=== PATIENT | male | born 1940 | race Caucasian/White ===

== ENCOUNTER 2021-11-23 12:51 | Observation (INO) ==
--- NOTE | 2021-11-23 12:58 | Emergency Department Note ---
HPI General Chief complaint: Rectal Bleed Stated complaint: Bloody Stool post procedure Time Seen by Provider: 11/23/21 12:56 Source: patient Mode of arrival: wheelchair Limitations: no limitations History of Present Illness HPI Narrative: 81-year-old male with past medical history of prostate cancer presenting with rectal bleeding. Patient saw Dr. Tiwari of urology this morning who performed transrectal biopsy of the prostate. Patient had a small amount of bleeding after the procedure that resolved and he was discharged. Approximately 1-1/2 hours after being discharged patient noted a large amount of red blood in his underwear. He has continued to have bright red blood per rectum for the past 2 hours. Denies any abdominal pain. Not on anticoagulation. Denies any prior history of GI bleeding. No dizziness, lightheadedness, or syncope. Related Data Home Medications Medication Instructions Recorded Confirmed omega-3 fatty acids 1,000 mg 1,000 mg PO QDAY 08/08/19 11/23/21 capsule (Fish Oil Concentrate) acetaminophen 325 mg tablet 500 mg PO Q6H PRN Pain 04/16/20 11/23/21 ascorbic acid (vitamin C) 500 mg 1 g PO QDAY 08/18/21 11/23/21 tablet cranberry 400 mg capsule 800 mg PO QDAY 08/18/21 11/23/21 Stool Softener 2 cap PO QDAY 11/23/21 11/23/21 Vitafusion 1 cap PO QDAY 11/23/21 11/23/21 cholecalciferol (vitamin D3) 25 25 mcg PO QDAY 11/23/21 11/23/21 mcg (1,000 unit) capsule levofloxacin 500 mg tablet 500 mg PO QDAY 11/23/21 11/23/21 Allergies Allergy/AdvReac Type Severity Reaction Status Date / Time No Known Drug Allergies Allergy Verified 11/23/21 12:57 Review of Systems ROS ROS Narrative: Narrative: Constitutional: Denies fever ENT ED: Denies throat pain Cardiovascular: Denies chest pain Respiratory: Denies shortness of breath or cough Gastrointestinal: Reports hematochezia; Denies abdominal pain, nausea or vomiting Genitourinary: Denies dysuria Musculoskeletal: Denies back pain Integumentary: Denies rash Neurological: Denies headache Psychiatric: Denies anxiety Endocrine: Denies fatigue Hematological/Lymphatic: Denies easy bruising PFSH Narrative Patient History Narrative: Narrative: Medical/Surgical/Family History All Active Problems (Updated 11/23/21 @ 17:25 by Billy Washington MD) Prostate cancer (Chronic) 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 Dyslipidemia Esophageal cancer GERD (gastroesophageal reflux disease) Herpes zoster Hiatal hernia Hyperlipidemia Hypertension Murmur Prostate cancer 2017 [place] grade 3+3 adenocarcinoma, 10 to 15% of the gland was involved, no treatment desired currently. Active surveillance Pruritic rash Pulmonary embolism Surgical History History of colonoscopy (~2010) History of esophageal surgery Part of the esophagus has been removed. History of hand surgery (~2016) RT thumb and tendon repair. History of hernia repair (~06/2012) History of Fitz fundoplication History of prostate biopsy (~2017) History of splenectomy History of surgery Medical records state: Gallbladder surgery for benign tumor in 2009. History of surgery on arm Family History Mother , Age 82 Heart disease Father , Age 42 Esophageal cancer Family/Other Uterine cancer Other Diabetes HTN (hypertension) Heart attack Prostate CA Social History Smoking Status: Former smoker Alcohol Intake Frequency: 0-2 drinks per day Substance Use: does not use Exam Narrative Narrative: Narrative: General Limitations: no limitations General appearance: Present alert and in no apparent distress Head Head: Present atraumatic and normocephalic Eye Eye: Present normal appearance and EOMI; Absent scleral icterus or conjunctival injection ENT ENT: Present mucous membranes moist Neck Neck: Present trachea midline Chest Chest: Present symmetric chest wall rise Respiratory Respiratory: Present normal lung sounds bilaterally; Absent respiratory distress, rales/crackles, wheezes, stridor or accessory muscle use Cardiovascular Cardiovascular: Present regular rate and normal rhythm; Absent systolic murmur or diastolic murmur Adbominal Abdominal: Present soft; Absent distention, tenderness, guarding, rebound or rigidity Rectal Rectal: Present other (Red blood actively draining from the rectum. No external fissures or lesions noted.); Absent tenderness Extremities Extremities: Present normal inspection; Absent pretibial edema Neurological Neurological: Present alert and oriented X3 Psychiatric Psychiatric: Present normal affect and normal mood Skin Skin: Present warm (WNL) and dry Course Consultations Consultation #1: Dr. Tiwari, urology Time: 15:00 Consultation #2: Margaret Miner, gastroenterology Time: 16:20 Consultation #3: Dr. Hernandez, hospitalist Time: 16:40 Vital Signs Vital signs: Vital Signs Temperature 97.4 F 11/23/21 12:53 Pulse Rate 93 H 11/23/21 12:53 Respiratory Rate 18 11/23/21 12:53 Blood Pressure 130/80 11/23/21 12:53 Pulse Oximetry (%) 98 11/23/21 12:53 Oxygen Delivery Method 11/23/21 12:53 Temperature 97.4 F 11/23/21 12:53 Pulse Rate 93 H 11/23/21 17:02 Respiratory Rate 18 11/23/21 12:53 Blood Pressure 93/67 11/23/21 14:16 Pulse Oximetry (%) 100 11/23/21 17:02 Oxygen Delivery Method 11/23/21 12:53 [facility] MDM Narrative Medical decision making narrative: 81-year-old male presenting with rectal bleeding after transrectal prostate biopsy this morning. He does have active red blood on rectal exam without prostate tenderness. Vital signs are stable. Not on anticoagulation. Will obtain labs and discuss with Dr. Tiwari. Hemoglobin is 11.9, we do not have any prior comparison here. INR is 1.0. I spoke with Dr. Tiwari who recommends direct pressure with gauze, which I attempted with TXA soaked gauze, however he continued to have lower GI bleeding with clots. Blood pressure and heart rate remain stable. Will discuss with GI and patient will likely need admission. 1710: I spoke with Margaret Miner of GI who is willing to consult on the patient for his lower GI bleeding. I also spoke again with Dr. Tiwari. I held pressure again digital rectally for 10 minutes over the prostate area. Patient did seem to have some improvement in bleeding after holding pressure. Patient was discussed with Dr. Hernandez, hospitalist, who is agreeable and accepting the patient for observation admission. Lab Data Lab results reviewed: Yes I reviewed the patient's lab results. Result diagrams: 11/23/21 13:30 Labs: Lab Results 11/23/21 11/23/21 11/23/21 Range/Units 13:28 13:30 13:30 WBC 12.0 H (4.5-11.0) K/mcL RBC 3.80 L (4.63-6.08) M/mcL Hgb 11.9 L (13.7-17.5) g/dL Hct 35.5 L (40.1-51.0) % POC Hct (41-55) MCV 93.4 (80.0-100.0) fL MCH 31.3 (26.0-34.0) pg MCHC 33.5 (31.0-36.0) g/dL RDW 14.6 H (11.5-14.5) % Plt Count 270 (140-440) K/mcL MPV 9.8 (7.4-10.4) fL Immature Gran % (Auto) 0.5 (0.0-0.5) % Neut % (Auto) 71.9 (38.0-78.0) % Lymph % (Auto) 16.0 (15.5-49.0) % [place] % (Auto) 7.4 (1.0-12.0) % Eos % (Auto) 3.8 (0.0-7.0) % Baso % (Auto) 0.4 (0.0-2.0) % Lymph # (Auto) 1.92 (1.50-4.80) K/mcL [place] # (Auto) 0.89 (0.10-0.90) K/mcL Eos # (Auto) 0.45 (0.00-0.70) K/mcL Baso # (Auto) 0.05 (0.00-0.30) K/mcL Immature Gran # 0.06 H (0.00-0.05) K/mcl Absolute Neutrophils 8.68 H (1.80-8.00) K/mcL POC PT 12.1 (11.9-14.5) POC INR 1.0 (0.8-1.2) APTT 27.5 (20.0-37.0) sec POC Sodium (133-145) POC Potassium (3.3-5.1) POC Chloride (96-108) POC Total CO2 (22-30) POC BUN (6-20) POC Creatinine (0.6-1.2) POC Glucose (70-105) POC WB Ioniz Calcium (1.16-1.32) 11/23/21 Range/Units 13:31 WBC (4.5-11.0) K/mcL RBC (4.63-6.08) M/mcL Hgb (13.7-17.5) g/dL Hct (40.1-51.0) % POC Hct 37.0 L (41-55) MCV (80.0-100.0) fL MCH (26.0-34.0) pg MCHC (31.0-36.0) g/dL RDW (11.5-14.5) % Plt Count (140-440) K/mcL MPV (7.4-10.4) fL Immature Gran % (Auto) (0.0-0.5) % Neut % (Auto) (38.0-78.0) % Lymph % (Auto) (15.5-49.0) % [place] % (Auto) (1.0-12.0) % Eos % (Auto) (0.0-7.0) % Baso % (Auto) (0.0-2.0) % Lymph # (Auto) (1.50-4.80) K/mcL [place] # (Auto) (0.10-0.90) K/mcL Eos # (Auto) (0.00-0.70) K/mcL Baso # (Auto) (0.00-0.30) K/mcL Immature Gran # (0.00-0.05) K/mcl Absolute Neutrophils (1.80-8.00) K/mcL POC PT (11.9-14.5) POC INR (0.8-1.2) APTT (20.0-37.0) sec POC Sodium 139 (133-145) POC Potassium 3.8 (3.3-5.1) POC Chloride 100 (96-108) POC Total CO2 27.0 (22-30) POC BUN 14 (6-20) POC Creatinine 1.0 (0.6-1.2) POC Glucose 132 H (70-105) POC WB Ioniz Calcium 1.26 (1.16-1.32) Discharge Plan Patient/Caregiver Discharge Instructions Pt seen by VP GLOBAL/PA only: No Clinical Impression: Rectal bleeding Patient Disposition: Xfer As Outpt/Obs ([facility]) Follow up with: Rnoy Dhillon MD [Referring] - Prescriptions: No Action omega-3 fatty acids [Fish Oil Concentrate] 1,000 mg capsule 1,000 mg PO QDAY acetaminophen 325 mg tablet 500 mg PO Q6H PRN (Reason: Pain) Stool Softener 2 cap PO QDAY Vitafusion 1 cap PO QDAY ascorbic acid (vitamin C) 500 mg tablet 1 g PO QDAY cranberry 400 mg capsule 800 mg PO QDAY Rx Instructions: administer with a meal levofloxacin 500 mg tablet 500 mg PO QDAY cholecalciferol (vitamin D3) 25 mcg (1,000 unit) capsule 25 mcg PO QDAY
[2021-11-23 13:34] LABS: POC Pro Time 12.1 (11.9-14.5)
[2021-11-23 13:34] LABS: POC Calcium, Ionized 1.26 (1.16-1.32); POC Potassium 3.8 (3.3-5.1)
[2021-11-23 14:01] LABS: Basophils # (Auto) 0.05 K/mcL (0.00-0.30); Basophils % (Auto) 0.4 % (0.0-2.0); Eosinophils # (Auto) 0.45 K/mcL (0.00-0.70); Eosinophils % (Auto) 3.8 % (0.0-7.0); Hematocrit 35.5 % (40.1-51.0); Hemoglobin 11.9 g/dL (13.7-17.5); Lymphocytes # (Auto) 1.92 K/mcL (1.50-4.80); Mean Cell Volume 93.4 fL (80.0-100.0); Mean Corpuscular HGB Conc 33.5 g/dL (31.0-36.0); Mean Platelet Volume 9.8 fL (7.4-10.4); Monocytes # (Auto) 0.89 K/mcL (0.10-0.90); Monocytes % (Auto) 7.4 % (1.0-12.0); Neutrophils % (Auto) 71.9 % (38.0-78.0); Platelet Count 270 K/mcL (140-440); Red Cell Distribution Width 14.6 % (11.5-14.5)
[2021-11-23] MEDS ORDERED: TRANEXAMIC ACID 1,000 MG/10 ML VIAL IV ONE (14:35)
[2021-11-23 14:39] LABS: Partial Thromboplastin Time 27.5 sec (20.0-37.0)
[2021-11-23] MEDS ORDERED: 0.9 % SODIUM CHLORIDE 250 ML IV SCH (16:00)
[2021-11-23] MEDS ORDERED: ACETAMINOPHEN 325 MG TABLET PO PRN (17:21)
[2021-11-23] MEDS ORDERED: ONDANSETRON 4 MG/2 ML VIAL IV PRN (17:21)
--- NOTE | 2021-11-23 17:29 | Internal Med History&Physical ---
HPI History of Present Illness Patient information: Note initiated : 11/23/21 at 5:26 pm Service Date, if different from initiated Date: [] Patient: Mark Titus a 81 y/o M admitted on for Bloody Stool post procedure. Chief Complaint: [Post-op bleed] Chief complaint: Rectal hemorrhage History of present illness: Mr. Titus is a 81 year old M with a past medical history significant for prior BPH and prostate cancer who recently underwent transrectal prostate biopsy by urology and subsequently developed ongoing rectal bleeding resulting in his presentation to the ER. On arrival he was hemodynamically stable and afebrile. His H&H was 11.9/35.5. There was trouble in achieving hemostasis in the ER and GI were consulted. It was recommended to monitor him overnight with serial H&H. The hospitalist service was asked admit the patient. GI will be consulted. Discussed the case with urology. Review of Systems All systems: reviewed and no additional remarkable complaints except as stated Constitutional Constitutional: Present as per HPI EENT Eyes: Present as per HPI; Absent blurry vision Cardiovascular Cardiovascular: Present as per HPI; Absent chest pain, dyspnea, dyspnea on exertion, leg edema or palpatations Respiratory Respiratory: Present as per HPI; Absent cough, dyspnea, dyspnea on exertion, wheezing or stridor Gastrointestinal Gastrointestinal: Present as per HPI; Absent abdominal pain, diarrhea, dysphagia, hematemesis, melena, nausea or vomiting Musculoskeletal Musculoskeletal: Present as per HPI; Absent joint swelling, limited range of motion, muscle cramps, muscle weakness or myalgias Integumentary Integumentary: Present as per HPI; Absent erythema, new lesions, rash or wounds Neurological Neurological: Present as per HPI; Absent abnormal gait, behavioral changes, focal weakness, headache(s), loss of vision, numbness, sensory deficit or syncope Endocrine Endocrine: Absent change in body appearance, fatigue or heat intolerance Hematologic/Lymphatic Hematologic/Lymphatic: Present as per HPI PFSH PFSH All Active Problems (Updated 11/23/21 @ 17:25 by Billy Washington MD) Prostate cancer (Chronic) 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 Dyslipidemia Esophageal cancer GERD (gastroesophageal reflux disease) Herpes zoster Hiatal hernia Hyperlipidemia Hypertension Murmur Prostate cancer 2017 [place] grade 3+3 adenocarcinoma, 10 to 15% of the gland was involved, no treatment desired currently. Active surveillance Pruritic rash Pulmonary embolism Surgical History History of colonoscopy (~2010) History of esophageal surgery Part of the esophagus has been removed. History of hand surgery (~2016) RT thumb and tendon repair. History of hernia repair (~06/2012) History of Fitz fundoplication History of prostate biopsy (~2016) History of splenectomy History of surgery Medical records state: Gallbladder surgery for benign tumor in 2009. 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 alcohol intake frequency: 0-2 drinks per day substance use type: does not use MEDS/ALLERGIES Home Medications and Allergies Home Medications Medication Instructions Recorded Confirmed Type omega-3 fatty acids 1,000 mg 1,000 mg PO QDAY 08/08/19 11/23/21 History capsule (Fish Oil Concentrate) acetaminophen 325 mg tablet 500 mg PO Q6H PRN Pain 04/16/20 11/23/21 History ascorbic acid (vitamin C) 500 mg 1 g PO QDAY 08/18/21 11/23/21 History tablet cranberry 400 mg capsule 800 mg PO QDAY 08/18/21 11/23/21 History Stool Softener 2 cap PO QDAY 11/23/21 11/23/21 History Vitafusion 1 cap PO QDAY 11/23/21 11/23/21 History cholecalciferol (vitamin D3) 25 25 mcg PO QDAY 11/23/21 11/23/21 History mcg (1,000 unit) capsule levofloxacin 500 mg tablet 500 mg PO QDAY 11/23/21 11/23/21 History Allergies Allergy/AdvReac Type Severity Reaction Status Date / Time No Known Drug Allergies Allergy Verified 11/23/21 12:57 EXAM Constitutional Vitals: Temp Pulse Resp BP Pulse Ox O2 Del Method 97.4 F 93 H 18 93/67 100 11/23/21 12:53 11/23/21 17:02 11/23/21 12:53 11/23/21 14:16 11/23/21 17:02 11/23/21 12:53 General appearance: average body habitus Head Head exam: Present atraumatic, normal inspection and normocephalic Eye Eye exam: Present EOMI, normal appearance and PERRL; Absent conjunctival injecti on ENT ENT exam: Present normal exam; Absent mucous membranes dry Neck Neck exam: Present full ROM; Absent lymphadenopathy Respiratory Respiratory exam: Present normal respiratory exam and CTAB; Absent decreased breath sounds, respiratory distress or wheezes Cardiovascular Cardiovascular exam: Present normal rate and rhythm and RRR; Absent JVD GI/Abdominal GI/Abdominal exam: Present normal bowel sounds and soft; Absent diminished bowel sounds, distended, guarding, mass, rebound or tenderness Neurological Exam Neurological exam: Present alert, CN II-XII intact and oriented X3 Psychiatric Psychiatric exam: Present normal affect and normal mood Skin Skin exam: Present intact and warm; Absent erythema, pallor, petechiae or rash DATA Data Completed and Pending Labs: Labs from last 24 hours 11/23/21 11/23/21 11/23/21 13:31 13:30 13:30 WBC 12.0 H RBC 3.80 L Hgb 11.9 L Hct 35.5 L POC Hct 37.0 L MCV 93.4 MCH 31.3 MCHC 33.5 RDW 14.6 H Plt Count 270 MPV 9.8 Immature Gran % (Auto) 0.5 Neut % (Auto) 71.9 Lymph % (Auto) 16.0 [place] % (Auto) 7.4 Eos % (Auto) 3.8 Baso % (Auto) 0.4 Lymph # (Auto) 1.92 [place] # (Auto) 0.89 Eos # (Auto) 0.45 Baso # (Auto) 0.05 Immature Gran # 0.06 H Absolute Neutrophils 8.68 H POC PT Pending POC INR Pending APTT 27.5 POC Sodium 139 POC Potassium 3.8 POC Chloride 100 POC Total CO2 27.0 POC BUN 14 POC Creatinine 1.0 POC Glucose 132 H POC WB Ioniz Calcium 1.26 11/23/21 13:28 WBC RBC Hgb Hct POC Hct MCV MCH MCHC RDW Plt Count MPV Immature Gran % (Auto) Neut % (Auto) Lymph % (Auto) [place] % (Auto) Eos % (Auto) Baso % (Auto) Lymph # (Auto) [place] # (Auto) Eos # (Auto) Baso # (Auto) Immature Gran # Absolute Neutrophils POC PT 12.1 POC INR 1.0 APTT POC Sodium POC Potassium POC Chloride POC Total CO2 POC BUN POC Creatinine POC Glucose POC WB Ioniz Calcium A/P Assessment and plan (1) Prostate cancer: Status: Chronic Comment: 2017 [place] grade 3+3 adenocarcinoma, 10 to 15% of the gland was involved, no treatment desired currently. Active surveillance (2) Rectal bleeding: Status: Acute Narrative A/P Narrative: The patient is hemodynamically stable. He is not on antiplatelet or anticoagulation therapy. We will monitor serial CBC. In the ER, pressure was applied for 10 minutes by the ER physician. GI will follow up. Time Spent With Patient Time: Total time spent is greater than 50% in coordination of care (as documented) at patient's floor/unit and/or counseling patient: Total time spent with greater than 50% in coordination of care (as documented) at patient's floor/unit and/or counseling patient:: 50 - 70 minutes
--- NOTE | 2021-11-23 17:56 | Urology Consult Note ---
HPI Data of Consult Patient: known to practice within the last 3 years Consult date: 11/23/21 Requesting physician: Billy Washington Consult Narrative Patient Information: Note initiated : 11/23/21 at 5:52 pm Service Date, if different from initiated Date: [] Patient: Mark Titus 81 y/o M admitted on for Bloody Stool post procedure. Chief Complaint: Luis is a 81-year-old male with a history of prostate cancer who underwent a surveillance prostate biopsy in the office today. He did well initially but then presented to the emergency department with persistent rectal bleeding. Chief complaint: Rectal bleeding Reason for consult: Rectal bleeding after prostate biopsy cc:: CC: Review of Systems All systems: reviewed and no additional remarkable complaints except as stated Constitutional Constitutional: Present as per HPI Gastrointestinal Gastrointestinal: Present hematochezia PFSH PFSH All Active Problems Rectal bleeding (Acute) Rising PSA level (Acute) Prostate cancer (Chronic) Cyst of testis (Chronic) Esophageal cancer (Chronic) Herpes zoster (Chronic) Hiatal hernia (Chronic) Murmur (Chronic) Dyslipidemia (Chronic) Barretts esophagus (Chronic) Hypertension (Chronic) Pulmonary embolism (Chronic) Back pain with radiculopathy (Chronic) BPH w urinary obs/LUTS (Acute) Pruritic rash (Acute) GERD (gastroesophageal reflux disease) (Acute) Hyperlipidemia (Acute) Chronic low back pain (Acute) Medical History Back pain with radiculopathy Barretts esophagus Chronic low back pain Cyst of testis Rt testicle pain x at least 2 years. Dyslipidemia Esophageal cancer GERD (gastroesophageal reflux disease) Herpes zoster Hiatal hernia Hyperlipidemia Hypertension Murmur Prostate cancer 2017 [place] grade 3+3 adenocarcinoma, 10 to 15% of the gland was involved, no treatment desired currently. Active surveillance Pruritic rash Pulmonary embolism Surgical History History of colonoscopy (~2010) History of esophageal surgery Part of the esophagus has been removed. History of hand surgery (~2017) RT thumb and tendon repair. History of hernia repair (~06/2012) History of Fitz fundoplication History of prostate biopsy (~2017) History of splenectomy History of surgery Medical records state: Gallbladder surgery for benign tumor in 2009. 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 alcohol intake frequency: 0-2 drinks per day substance use type: does not use MEDS/ALLERGIES Home Medications and Allergies Home Medications Medication Instructions Recorded Confirmed Type omega-3 fatty acids 1,000 mg 1,000 mg PO QDAY 08/08/19 11/23/21 History capsule (Fish Oil Concentrate) acetaminophen 325 mg tablet 500 mg PO Q6H PRN Pain 04/16/20 11/23/21 History ascorbic acid (vitamin C) 500 mg 1 g PO QDAY 08/18/21 11/23/21 History tablet cranberry 400 mg capsule 800 mg PO QDAY 08/18/21 11/23/21 History Stool Softener 2 cap PO QDAY 11/23/21 11/23/21 History Vitafusion 1 cap PO QDAY 11/23/21 11/23/21 History cholecalciferol (vitamin D3) 25 25 mcg PO QDAY 11/23/21 11/23/21 History mcg (1,000 unit) capsule levofloxacin 500 mg tablet 500 mg PO QDAY 11/23/21 11/23/21 History Allergies Allergy/AdvReac Type Severity Reaction Status Date / Time No Known Drug Allergies Allergy Verified 11/23/21 12:57 Physical Examination Vital Signs Vital signs: Temp Pulse Resp BP Pulse Ox O2 Del Method 97.4 F 86 18 107/72 97 11/23/21 17:31 11/23/21 17:43 11/23/21 17:31 11/23/21 17:39 11/23/21 17:43 11/23/21 12:53 General physical appearance General physical exam: no distress Neck Neck exam: trachea midline Cardiovascular Cardiovascular exam IM: Present normal rate and rhythm Respiratory Respiratory exam: normal respiratory effort Abdomen Abdomen: Present soft and non tender Genitourinary Genitourinary (Male): Present normal penis with no external lesions Rectum Rectum: Present normal sphincter tone; Absent no bleeding Results Labs Result diagrams: 11/23/21 13:30 Labs: Abnormal lab results 11/23/21 11/23/21 Range/Units 13:30 13:31 WBC 12.0 H (4.5-11.0) K/mcL RBC 3.80 L (4.63-6.08) M/mcL Hgb 11.9 L (13.7-17.5) g/dL Hct 35.5 L (40.1-51.0) % POC Hct 37.0 L (41-55) RDW 14.6 H (11.5-14.5) % Immature Gran # 0.06 H (0.00-0.05) K/mcl Absolute Neutrophils 8.68 H (1.80-8.00) K/mcL POC Glucose 132 H (70-105) All other labs normal. A/P Assessment and plan (1) Rectal bleeding: Status: Acute (2) Prostate cancer: Status: Chronic Comment: 2017 [place] grade 3+3 adenocarcinoma, 10 to 15% of the gland was involved, no treatment desired currently. Active surveillance (3) Rising PSA level: Status: Acute Plan Anthony is an 81-year-old male with a history of prostate cancer on surveillance with a rising PSA. He underwent prostate biopsy this morning he did well initially but then began to have rectal bleeding which has persisted. He presented to our emergency department. I instructed them to hold pressure for at least 10 minutes and this did not work. I have spoken with both general surgery and GI and both of them have indicated that the best thing to do is simply to create pressure. I placed half of a 4 inch Curlex covered in [place] jelly into the rectum to keep pressure. He will be admitted to the hospitalist service for observation overnight. If there are any problems the hospitalist may call me, general surgery or GI. The Curlex in the rectum should stay until the patient is uncomfortable or approximately 4 hours and may then be removed. I will follow-up with him in the morning. Time Spent With Patient Time: Total time spent is greater than 50% in coordination of care (as documented) at patient's floor/unit and/or counseling patient:
[2021-11-23] MEDS: DOCUSATE SODIUM 100 MG CAPSULE PO SCH (21:13)
[2021-11-23] MEDS: SENNOSIDES 1 TABLET PO SCH (21:13)
[2021-11-23] MEDS: 0.9 % SODIUM CHLORIDE 10 ML SYRINGE IV SCH (21:14)
[2021-11-24] MEDS: 0.9 % SODIUM CHLORIDE 10 ML SYRINGE IV SCH ×3 (05:05→21:09)
[2021-11-24 06:37] LABS: Basophils # (Auto) 0.06 K/mcL (0.00-0.30); Basophils % (Auto) 0.7 % (0.0-2.0); Eosinophils # (Auto) 0.44 K/mcL (0.00-0.70); Eosinophils % (Auto) 5.2 % (0.0-7.0); Hematocrit 28.3 % (40.1-51.0); Hemoglobin 9.6 g/dL (13.7-17.5); Lymphocytes # (Auto) 2.38 K/mcL (1.50-4.80); Lymphocytes % (Auto) 28.4 % (15.5-49.0); Mean Corpuscular HGB Conc 33.9 g/dL (31.0-36.0); Mean Platelet Volume 9.9 fL (7.4-10.4); Monocytes # (Auto) 0.86 K/mcL (0.10-0.90); Monocytes % (Auto) 10.3 % (1.0-12.0); Platelet Count 219 K/mcL (140-440); RBC 3.01 M/mcL (4.63-6.08); Red Cell Distribution Width 14.8 % (11.5-14.5); WBC 8.4 K/mcL (4.5-11.0)
--- NOTE | 2021-11-24 07:55 | Urology Progress Note ---
SUBJECTIVE Subjective Patient information: Note initiated : 11/24/21 at 7:51 am Service Date, if different from initiated Date: [] Patient: Mark Titus 81 y/o M admitted on 11/23/21 for Bloody Stool post procedure. Chief Complaint: Rectal bleeding after prostate biopsy Principal diagnosis: Rectal bleeding after prostate biopsy Interval history: Jamal is an 81-year-old male who underwent prostate biopsy in my office yesterday morning. Post procedure he developed significant rectal bleeding which did not stop. He presented to the emergency department and was admitted for observation. While in the ER I placed a Kerlix within the rectum to create some tamponade. That was removed yesterday evening at which time 300 mL of blood were obtained. Since that time the patient reports that he is not had any significant blood from the rectum and he feels well. Last night he indicated that he was having difficulty urinating. This morning he is urinating. Constitutional Vitals: Vital Signs Temp Pulse Resp BP Pulse Ox O2 Del Method O2 Flow Rate 97 F 67 15 115/74 97 0 11/24/21 07:48 11/24/21 04:01 11/24/21 07:48 11/24/21 07:48 11/24/21 07:48 11/24/21 00:00 11/24/21 04:01 Period Temp Pulse Resp BP Sys/Ferrara Pulse Ox O2 Del Method O2 Flow Rate Last 24 Hr 97 F-100.0 F 67-97 15-20 91-130/60-80 96-100 Room Air-Room Air 0-0 Intake and Output 11/23/21 11/24/21 11/24/21 21:59 05:59 13:59 Intake Total 300 250 Output Total 300 Balance 0 250 Weight 53.07 kg Intake & Output: Intake & Output 11/23/21 11/24/21 11/24/21 21:59 05:59 13:59 Intake Total 300 250 Output Total 300 Balance 0 250 Weight 53.07 kg Intake: IV 250 Sodium Chloride 0.9% 250 ml @ 250 20 mls/hr IV .[id number] [facility] Rx#: [id number] Oral 300 Output: Urine/Stool Mix 300 Other: Stool Color Bright Red Blood Stool Consistency Liquid General appearance: average body habitus, cooperative and no acute distress GI/Abdominal Additional comments: On examination of the rectum this morning there is no visible blood. Expanded Exam Urine Color: Dark Simran A/P Assessment and plan (1) Rectal bleeding: Status: Acute (2) Prostate cancer: Status: Chronic Comment: 2017 Mag grade 3+3 adenocarcinoma, 10 to 15% of the gland was involved, no treatment desired currently. Active surveillance Narrative A/P Narrative: Aylin is an 81-year-old male with a history of prostate cancer who underwent a surveillance prostate biopsy in the office yesterday morning. Post procedure he developed significant rectal bleeding that did not stop he presented to the emergency department. I placed a Curlex in the rectum for tamponade. This was left in place for several hours and was removed last night. Upon removal he had blood come out of the rectum but since that time he has not had any significant bleeding. On inspection this morning there is no blood at around the rectum. Patient is now urinating well. He feels well. He would like to go home. I discussed with nursing that the patient should be observed for several hours to ensure that his hemoglobin remained stable. Assuming his hemoglobin remained stable and there is no recurrent bleeding he can be discharged home and he will follow-up with me next week as currently scheduled. Time Spent With Patient Time: Total time spent is greater than 50% in coordination of care (as documented) at patient's floor/unit and/or counseling patient: Total time spent with greater than 50% in coordination of care (as documented) at patient's floor/unit and/or counseling patient:: less than 15 minutes
[2021-11-24] MEDS: DOCUSATE SODIUM 100 MG CAPSULE PO SCH ×2 (08:17→21:09)
--- NOTE | 2021-11-24 10:10 | Internal Med Progress Note ---
SUBJECTIVE Subjective Patient information: Note initiated : 11/24/21 at 10:08 am Service Date, if different from initiated Date: [] Patient: Mark Titus 81 y/o M admitted on 11/23/21 for Bloody Stool post procedure. Chief Complaint: [Rectal bleeding] Principal diagnosis: Rectal bleeding after prostate biopsy Interval history: The patient is very pleasant. He is calm and cooperative. He had no active complaints or concerns today. Discussed the case with the RN. Constitutional Vitals: Vital Signs Temp Pulse Resp BP Pulse Ox O2 Del Method O2 Flow Rate 97 F 78 15 115/74 97 0 11/24/21 07:48 11/24/21 08:00 11/24/21 08:00 11/24/21 07:48 11/24/21 08:00 11/24/21 08:00 11/24/21 04:01 Period Temp Pulse Resp BP Sys/Ferrara Pulse Ox O2 Del Method O2 Flow Rate Last 24 Hr 97 F-100.0 F 67-97 15-20 91-130/60-80 96-100 Room Air-Room Air 0-0 Intake and Output 11/23/21 11/24/21 11/24/21 21:59 05:59 13:59 Intake Total 300 250 Output Total 300 75 Balance 0 175 Weight 53.07 kg Intake & Output: Intake & Output 11/23/21 11/24/21 11/24/21 21:59 05:59 13:59 Intake Total 300 250 Output Total 300 75 Balance 0 175 Weight 53.07 kg Intake: IV 250 Sodium Chloride 0.9% 250 ml @ 250 20 mls/hr IV .[id number] [facility] Rx#: [id number] Oral 300 Output: Urine/Stool Mix 300 Stool 75 Other: Urine Color Dark Simran Stool Size Large Stool Color Bright Red Blood Brown Blood Tinged Stool Consistency Liquid Formed # Bowel Movements 1 Head Head exam: Present atraumatic and normal inspection Eye Eye exam: Present normal appearance ENT ENT exam: Present mucous membranes moist, normal exam and normal external ear exam Neck Neck exam: Present normal inspection Respiratory Respiratory exam: Present normal respiratory exam Cardiovascular Cardiovascular exam: Present normal rate and rhythm GI/Abdominal GI/Abdominal exam: Present normal bowel sounds Back Exam Back exam: Present normal inspection Neurological Exam Neurological exam: Present alert and oriented X3 Skin Skin exam: Present intact and warm OBJ DATA Labs CBC & Chem 7: 11/24/21 05:30 Labs: Abnormal Lab Results 11/24/21 11/23/21 11/23/21 05:30 13:31 13:30 WBC 12.0 H RBC 3.01 L 3.80 L Hgb 9.6 L 11.9 L Hct 28.3 L 35.5 L POC Hct 37.0 L RDW 14.8 H 14.6 H Immature Gran # 0.06 H Absolute Neutrophils 8.68 H POC Glucose 132 H Meds: Medications Acetaminophen (Acetaminophen 325 Mg Tablet) 650 mg PO Q6HP PRN; Protocol PRN Reason: Per Pain Protocol/Fever > 101 Docusate Sodium (Docusate Sodium 100 Mg Capsule) 100 mg PO BID [facility] Last Admin: 11/24/21 08:17 Dose: Not Given Ondansetron HCl (Ondansetron 4 Mg/2 Ml Vial) 4 mg IV Q6HP PRN PRN Reason: Nausea And Vomiting Senna (Sennosides 1 Tablet) 2 tab PO HS [facility] Last Admin: 11/23/21 21:13 Dose: Not Given Sodium Chloride (0.9 % Sodium Chloride 10 Ml Syringe) 10 ml IV Q8 [facility] Last Admin: 11/24/21 05:05 Dose: 10 ml A/P Assessment and plan (1) Prostate cancer: Status: Chronic Comment: 2017 Mag grade 3+3 adenocarcinoma, 10 to 15% of the gland was involved, no treatment desired currently. Active surveillance (2) Rectal bleeding: Status: Acute Narrative A/P Narrative: The patient is hemodynamically stable. He is not on antiplatelet or anticoagulation therapy. We will monitor serial CBC. In the ER, pressure was applied for 10 minutes by the ER physician. GI will follow up. 11/24: The patient's hemoglobin has dropped nearly 2 points and is 9.6 today. After the rectal packing was removed yesterday at 2300, there was about 300 cc of blood and clots evacuated. He had another episode of hematochezia this morning. We will continue to monitor and follow-up with an H&H at noon. Time Spent With Patient Time: Total time spent is greater than 50% in coordination of care (as documented) at patient's floor/unit and/or counseling patient: Total time spent with greater than 50% in coordination of care (as documented) at patient's floor/unit and/or counseling patient:: 25 - 35 minutes QUALITY VTE Deep Vein Thrombosis/Pulmonary Embolism Present on Admission: No
[2021-11-24 12:50] LABS: Hematocrit 27.8 % (40.1-51.0); Hemoglobin 9.3 g/dL (13.7-17.5)
[2021-11-24] MEDS: LEVOFLOXACIN 500 MG TABLET PO SCH (17:09)
[2021-11-24 18:37] LABS: Hemoglobin 9.1 g/dL (13.7-17.5)
[2021-11-24] MEDS: SENNOSIDES 1 TABLET PO SCH (21:09)
[2021-11-25 07:01] LABS: Basophils # (Auto) 0.04 K/mcL (0.00-0.30); Basophils % (Auto) 0.5 % (0.0-2.0); Eosinophils # (Auto) 0.59 K/mcL (0.00-0.70); Eosinophils % (Auto) 7.5 % (0.0-7.0); Hematocrit 26.5 % (40.1-51.0); Hemoglobin 9.1 g/dL (13.7-17.5); Lymphocytes # (Auto) 2.43 K/mcL (1.50-4.80); Lymphocytes % (Auto) 30.8 % (15.5-49.0); Mean Cell Volume 93.3 fL (80.0-100.0); Mean Corpuscular HGB Conc 34.3 g/dL (31.0-36.0); Mean Platelet Volume 9.8 fL (7.4-10.4); Monocytes # (Auto) 0.93 K/mcL (0.10-0.90); Monocytes % (Auto) 11.8 % (1.0-12.0); Platelet Count 217 K/mcL (140-440); RBC 2.84 M/mcL (4.63-6.08); Red Cell Distribution Width 14.5 % (11.5-14.5); WBC 7.9 K/mcL (4.5-11.0)
[2021-11-25] MEDS: 0.9 % SODIUM CHLORIDE 10 ML SYRINGE IV SCH (07:24)
[2021-11-25 07:31] LABS: ALT/SGPT 6 U/L (<40); AST/SGOT 12 U/L (<40); Albumin 3.1 gm/dL (3.2-5.2); Albumin/Globulin Ratio 1.5 (1.0-2.3); Alkaline Phosphatase 43 U/L (39-117); Bilirubin,Direct < 0.2 mg/dL (0-0.3); Bilirubin,Total 0.6 mg/dL (0.1-1.0); Blood Urea Nitrogen 14 mg/dL (8-23); Calcium 8.5 mg/dL (8.6-10.4); Carbon Dioxide 26 mmol/L (22-30); Chloride 103 mmol/L (96-108); Glomerular Filtration Rate 88; Glucose 87 mg/dL (70-105); Lactate Dehydrogenase 170 U/L (135-225); Phosphorous 3.1 mg/dL (2.5-4.5); Triglycerides 60 mg/dL (<150)
[2021-11-25] MEDS: LEVOFLOXACIN 500 MG TABLET PO SCH (08:45)
[2021-11-25] MEDS: DOCUSATE SODIUM 100 MG CAPSULE PO SCH (08:46)
--- NOTE | 2021-11-25 11:16 | Discharge Summary ---
Discharge Provider Provider IMPORTANT FOLLOW-UP INFORMATION FOR PCP: Patient information: Note initiated : 11/25/21 at 11:13 am Service Date, if different from initiated Date: [] Patient: Mark Titus 81 y/o M admitted on 11/23/21 for Bloody Stool post procedure. Chief Complaint: [] Date of admission: 11/23/21 19:00 Discharge date: 11/25/21 Consults: 11/23/21 14:31 Consult to Physician [CONS] Stat Comment: Consulting Provider: Dimas Tiwari Reason For Exam: Physician to Consult 11/23/21 16:28 Consult to Physician [CONS] Stat Comment: Consulting Provider: Chrystal Hernandez Reason For Exam: Physician to Consult COURSE Hospital Course Hospital course: Discharge diagnosis * Postbiopsy rectal bleeding self resolved * Anemia blood loss stable around 9.2. No indication for transfusion. Brief hospital course The patient is hemodynamically stable. He is not on antiplatelet or anticoagulation therapy. We will monitor serial CBC. In the ER, pressure was applied for 10 minutes by the ER physician. GI will follow up. 11/24: The patient's hemoglobin has dropped nearly 2 points and is 9.6 today. After the rectal packing was removed yesterday at 2300, there was about 300 cc of blood and clots evacuated. He had another episode of hematochezia this morning. We will continue to monitor and follow-up with an H&H at noon. 11/25-patient doing well. No overnight events or bleeding, feels at baseline. Discharging home with advised to follow-up with PCP in 5 to 7 days. Also follow-up with urology as scheduled by Dr. Tiwari. Discharge diagnosis: Post biopsy hematochezia Time Spent with Patient Time attestation: Total time spent providing and/or coordinating discharge services: Time spent: Greater than 30 minutes EXAM Constitutional Vitals: Temp Pulse Resp BP Pulse Ox O2 Del Method O2 Flow Rate 98.5 F 83 18 103/61 100 0 11/25/21 08:00 11/25/21 08:00 11/25/21 08:00 11/25/21 08:00 11/25/21 08:00 11/25/21 08:00 11/24/21 04:01 Discharge Data Data Completed and Pending Labs on day of discharge: Labs from last 24 hours 11/25/21 11/25/21 11/24/21 05:54 05:54 18:10 WBC 7.9 RBC 2.84 L Hgb 9.1 L 9.1 L Hct 26.5 L 27.0 L MCV 93.3 MCH 32.0 MCHC 34.3 RDW 14.5 Plt Count 217 MPV 9.8 Immature Gran % (Auto) 0.4 Neut % (Auto) 49.0 Lymph % (Auto) 30.8 Dent % (Auto) 11.8 Eos % (Auto) 7.5 H Baso % (Auto) 0.5 Lymph # (Auto) 2.43 Dent # (Auto) 0.93 H Eos # (Auto) 0.59 Baso # (Auto) 0.04 Immature Gran # 0.03 Absolute Neutrophils 3.89 Sodium 135 Potassium 3.9 Chloride 103 Carbon Dioxide 26 Anion Gap 6.0 L BUN 14 Creatinine 0.7 GFR Calculation 88 Glucose 87 Uric Acid 5.0 Calcium 8.5 L Phosphorus 3.1 Magnesium 1.9 Total Bilirubin 0.6 Direct Bilirubin < 0.2 GGT 12 AST 12 ALT 6 Alkaline Phosphatase 43 Lactate Dehydrogenase 170 Total Protein 5.1 L Albumin 3.1 L Globulin 2.0 L Albumin/Globulin Ratio 1.5 Triglycerides 60 11/24/21 12:05 WBC RBC Hgb 9.3 L Hct 27.8 L MCV MCH MCHC RDW Plt Count MPV Immature Gran % (Auto) Neut % (Auto) Lymph % (Auto) Dent % (Auto) Eos % (Auto) Baso % (Auto) Lymph # (Auto) Dent # (Auto) Eos # (Auto) Baso # (Auto) Immature Gran # Absolute Neutrophils Sodium Potassium Chloride Carbon Dioxide Anion Gap BUN Creatinine GFR Calculation Glucose Uric Acid Calcium Phosphorus Magnesium Total Bilirubin Direct Bilirubin GGT AST ALT Alkaline Phosphatase Lactate Dehydrogenase Total Protein Albumin Globulin Albumin/Globulin Ratio Triglycerides Discharge Plan Patient/Caregiver Discharge Instructions Activity: increase activity as tolerated Diet: Regular Diet Instructions: Rectal Bleeding (GEN) Activity Restrictions/Additional Instructions: Follow-up with urology as advised Follow-up PCP in 5 to 7 days Return to ER if bloody bowels noted Prescriptions: Continued omega-3 fatty acids [Fish Oil Concentrate] 1,000 mg capsule 1,000 mg PO QDAY acetaminophen 325 mg tablet 500 mg PO Q6H PRN (Reason: Pain) Stool Softener 2 cap PO QDAY Vitafusion 1 cap PO QDAY ascorbic acid (vitamin C) 500 mg tablet 1 g PO QDAY cranberry 400 mg capsule 800 mg PO QDAY Rx Instructions: administer with a meal levofloxacin 500 mg tablet 500 mg PO QDAY cholecalciferol (vitamin D3) 25 mcg (1,000 unit) capsule 25 mcg PO QDAY Follow Up Plan Follow up with: Juno Dunn PA-C [Physician Service Shop Foreman] - 12/06/21 1:30 pm Dimas Tiwari MD [Physician] - 12/01/21 2:30 pm (Continue with your current appointment) Patient Disposition: Home, Self-Care Rehab Potential: Fair I certify that the patient requires SNF services: No Overall status at discharge: patient is back to baseline Discharge Orders: Discharge Order (Routine); Ordered 11/25/21 Ordered By: Ramon WANG VTE Deep Vein Thrombosis/Pulmonary Embolism Present on Admission: No
== END 2021-11-25 13:05 | disposition home or self-care (01) ==
LOC: ED 12:51 → INTOOBSV 19:00 → ICU 19:00
PROVIDERS: ADMIT Student in an Organized Health Care Education/Training Program; ATTEND Internal Medicine